=== PATIENT | female | born 1955 | race Caucasian/White ===

== ENCOUNTER → 2016-07-05 09:59 | Outpatient (CLI) | payer MEDICAID ==
[~2016-07-05 09:59] MED LIST: NORCO 10/325 TA1 TA1 PO; RYBIX ODT50 MG PO; TOPROL XL100 MG PO
[2016-07-05 10:28] LABS: BASOPHILS 0.2 % (0.0-2.0); EOSINOPHILS 1.7 % (0-7); HEMOGLOBIN 13.3 g/dL (12-16); IMMATURE GRANULOCYTES 0.3 % (0-5); LYMPHOCYTES 25.9 % (15-50); MCH 30.2 pg (26.0-34.0); MCHC 31.7 g/dL (31.0-37.0); MCV 95.5 fL (80.0-100.0); MEAN PLATELET VOLUME 9.3 fL (7.4-10.4); MONOCYTES 10.5 % (2-11); NEUTROPHILS 61.4 % (40-80); PLATELET COUNT 251 10x3/uL (130-400); RDW 12.3 % (11.5-14.5); WBC 9.5 10x3/uL (4.8-10.8)
[2016-07-05 10:54] LABS: ALBUMIN 3.9 g/dL (3.4-5.0); ALKALINE PHOSPHATASE 77 U/L (46-116); ALT (SGPT) 27 U/L (10-68); BILIRUBIN - TOTAL 0.36 mg/dL (0.2-1.3); CALC OSMOLALITY 283 mosm/kg (275-300); CALCIUM 8.7 mg/dL (8.5-10.1); CARBON DIOXIDE 29.8 mmol/L (21.0-32.0); CHLORIDE - SERUM 105 mmol/L (98-107); CHOL - HDL RATIO 5.6 ratio (2.3-4.1); CHOLESTEROL, TOTAL 240 mg/dL (0-200); CREATININE - SERUM 0.7 mg/dL (0.6-1.3); GLUCOSE 106 mg/dL (74-106); HDL CHOLESTEROL 43 mg/dL (32-96); LDL CHOLESTEROL 138 mg/dL (0-100); LDL-HDL RATIO 3.2 ratio (1.5-3.5); POTASSIUM - SERUM 4.1 mmol/L (3.5-5.1); PROTEIN - SERUM 7.5 g/dL (6.4-8.2); SODIUM 142 mmol/L (136-145); THYROID STIMULATING HORMONE 0.88 uIU/mL (0.36-3.74); TRIGLYCERIDE 298 mg/dL (30-200); UREA NITROGEN 15 mg/dL (7-18); eGFR NON AFRICAN AMERICAN 90 mL/min (90-120)
== END | disposition home or self-care (01) ==
LOC: D.LAB 09:59
PROVIDERS: Family Medicine
DX: I10 Essential (primary) hypertension (principal); E78.5 Hyperlipidemia, unspecified

== ENCOUNTER → 2016-09-08 15:25 | Outpatient (CLI) | payer MEDICAID | END | disposition home or self-care (01) | LOC: D.RAD 15:25 | DX: M54.5 Low back pain (principal); M25.569 Pain in unspecified knee ==

== ENCOUNTER → 2017-02-16 15:12 | Outpatient (CLI) | payer MEDICAID | END | disposition home or self-care (01) | LOC: D.RAD 15:12 | DX: M25.531 Pain in right wrist (principal); R22.31 Localized swelling, mass and lump, right upper limb; M25.562 Pain in left knee ==

== ENCOUNTER 2018-05-04 21:31 | Emergency (ER) | payer SELFPAY ==
[~2018-05-04] VITALS: Ht 165.1 cm; Wt 88.6 kg
[2018-05-04 21:40] VITALS: Ht 165.1 cm; Wt 88.6 kg
[2018-05-04] MEDS ORDERED: NORVASC10 MG PO (22:29)
[2018-05-04 23:07] VITALS: BP 170/91
[2018-05-05] MEDS ORDERED: CARAFATE1 G PO (17:17)
[2018-05-05] MEDS ORDERED: CATAPRES0.1 MG PO (17:17)
[2018-05-05] MEDS ORDERED: PROTONIX40 MG PO (17:17)
[2018-05-05] MEDS ORDERED: ZOFRAN ODT4 MG/UDTAB PO (17:17)
== END 2018-05-04 23:08 | disposition home or self-care (01) ==
LOC: D.ER 21:31 → EDBD 21:31 → D.ER 23:08
DX: I10 Essential (primary) hypertension (principal); M54.5 Low back pain

== ENCOUNTER 2018-05-05 10:16 | Emergency (ER) | payer SELFPAY ==
[~2018-05-05] VITALS: Ht 165.1 cm; Wt 88.6 kg
[~2018-05-05 10:16] MED LIST changes: +NORVASC10 MG PO
[2018-05-05 10:37] VITALS: Ht 165.1 cm; Wt 88.6 kg
[2018-05-05 11:03] LABS: BASOPHILS 0.2 % (0-2); EOSINOPHILS 0.8 % (0-7); HEMATOCRIT 43.1 % (36.0-48.0); HEMOGLOBIN 14.4 g/dL (12-16); IMMATURE GRANULOCYTES 0.3 % (0-5); MCH 31.1 pg (26.0-34.0); MCHC 33.4 g/dL (31.0-37.0); MCV 93.1 fL (80.0-100.0); MEAN PLATELET VOLUME 9.6 fL (7.4-10.4); MONOCYTES 10.1 % (2-11); NEUTROPHILS 64.6 % (40-80); RBC 4.63 10x6/uL (4.00-5.40); RDW 12.3 % (11.5-14.5); WBC 11.9 10x3/uL (4.8-10.8)
[2018-05-05 11:12] LABS: PLATELET COUNT 364 10x3/uL (130-400)
[2018-05-05 11:22] LABS: ALBUMIN 4.4 g/dL (3.4-5.0); ALKALINE PHOSPHATASE 158 U/L (46-116); ALT (SGPT) 754 U/L (10-68); AMYLASE - SERUM 86 U/L (25-115); BILIRUBIN - TOTAL 0.55 mg/dL (0.2-1.3); CALC OSMOLALITY 280 mosm/kg (275-300); CALCIUM 9.6 mg/dL (8.5-10.1); CHLORIDE - SERUM 100 mmol/L (98-107); CREATININE - SERUM 0.8 mg/dL (0.6-1.3); GLUCOSE 105 mg/dL (74-106); LIPASE 384 U/L (73-393); POTASSIUM - SERUM 3.6 mmol/L (3.5-5.1); PROTEIN - SERUM 8.5 g/dL (6.4-8.2); SODIUM 140 mmol/L (136-145); TROPONIN-I < 0.017 ng/mL (0.000-0.060); UREA NITROGEN 17 mg/dL (7-18); eGFR NON AFRICAN AMERICAN 76 mL/min (90-120)
[2018-05-05 13:01] LABS: APPEARANCE CLEAR (CLEAR); BILIRUBIN NEGATIVE (NEGATIVE); COLOR YELLOW (YELLOW); GLUCOSE NEGATIVE (NEGATIVE); KETONE SMALL mg/dL (NEGATIVE); NITRITE NEGATIVE (NEGATIVE); PROTEIN NEGATIVE (NEGATIVE); UROBILINOGEN NORMAL (NORMAL)
[2018-05-05] MEDS ORDERED: CARAFATE1 G PO (17:17)
[2018-05-05] MEDS ORDERED: CATAPRES0.1 MG PO (17:17)
[2018-05-05] MEDS ORDERED: ZOFRAN ODT4 MG/UDTAB PO (17:17)
[2018-05-05] MEDS ORDERED: PROTONIX40 MG PO (17:17)
[2018-05-05 18:25] VITALS: BP 170/77
== END 2018-05-05 18:26 | disposition home or self-care (01) ==
LOC: D.ER 10:16 → EDBD 10:16 → D.ER 18:26
PROVIDERS: Family Medicine
DX: R11.2 Nausea with vomiting, unspecified (principal); R79.89 Other specified abnormal findings of blood chemistry

== ENCOUNTER → 2018-05-10 14:58 | Outpatient (CLI) | payer MEDICAID ==
[2018-05-05 10:37] VITALS: BMI 32.5
[~2018-05-10 14:58] MED LIST changes: +CARAFATE1 G PO; +CATAPRES0.1 MG PO; +CATAPRES0.3 MG PO; +HYDROCODON-ACE1 EA10 PO; +LINZESS145 MCG PO; +PROTONIX40 MG PO; +ZOFRAN ODT4 MG/UDTAB PO
[2018-05-10 15:49] LABS: ALBUMIN 3.7 g/dL (3.4-5.0); BILIRUBIN - DIRECT 0.09 mg/dL (0.00-0.30); BILIRUBIN - INDIRECT 0.13 mg/dL (0.00-1.00); BILIRUBIN - TOTAL 0.22 mg/dL (0.2-1.3); PROTEIN - SERUM 7.5 g/dL (6.4-8.2)
[2018-05-30 19:35] VITALS: BMI 31.6
== END | disposition home or self-care (01) ==
LOC: D.LAB 14:58
PROVIDERS: Family Medicine
DX: K29.40 Chronic atrophic gastritis without bleeding (principal); R79.89 Other specified abnormal findings of blood chemistry

== ENCOUNTER 2018-05-30 13:30 | Inpatient (IN) | payer MEDICAID ==
[~2018-05-30] VITALS: Ht 165.1 cm; Wt 89.5 kg
--- NOTE | ~2018-05-30 | HEMODYNAMI ---
PATIENT:MARCO ANTONIO MCNAIR MEDICAL RECORD: [id number] : [birth year] [id number] ADMISSION DATE: 05/30/18 Generatedon:05/31/20188:38 Patient name: MARCO ANTONIO MCNAIR Patient #: [id number] SSN: D OB: 04/03/1954 Date of study: 05/31/2018 Page: Of Hemodynamic Procedure Report Patient Data Patient Demographics Procedure consent was obtained First Name: MARCO ANTONIO Gender: Female Last Name: XU : 04/03/1954 Patient #: [id number] Age: 64 year(s) Race: Unknown Additional ID: [id number] Contact details [address]: [address] [place] [address] State: [place] City: [place] Zip code: [address] Past Medical History Allergies: No known allergies Admission Admission Data Admission Date: 05/30/2018 Admission Time: 17:33 Room #: D.2116 Lab Results Lab Result Date: 05/31/2018 Lab Result Time: 0:00 Biochemistry Name Units Result Min Max BUN mg/dl 17 --(---*)-- 7 18 Creatinine mg/dl 1.2 --(---*)-- 0.6 1.3 CBC Name Units Result Min Max Hemoglobin g/dl 14.1 --(*---)-- 13.5 17.5 Procedure Procedure Types Cath Procedure Diagnostic Procedure LHC C w/Coronaries Procedure Description Procedure Date Procedure Date: 05/31/2018 Procedure Start Time: 8:30 Procedure End Time: 8:36 Procedure Staff Name Function Shamir Cabezas MD Performing Physician Carla Floyd RN Nurse Karel Regalado RT Scrub Abigail Remy RT Monitor Procedure Data Cath Procedure Fluoroscopy Diagnostic fluoroscopy Total fluoroscopy Time: 0.8 time: 0.8 min min Diagnostic fluoroscopy Total fluoroscopy dose: 332 dose: 332 mGy mGy Contrast Material Contrast Material Type Amount (ml) Isovue 300 44 Entry Location Entry Primary Successful Side Size Upsize Upsize Entry Closure Schuster ccessful Closure Location (Fr) 1 (Fr) 2 (Fr) Remarks Device Remarks Radial Right 6 Fr Mechanical artery Short Compression Estimated blood loss: 5 ml Diagnostic catheters Device Type Used For End Catheter Placement DIAGNOSTIC [place] 110cm 5 Procedure Fr catheter ([id number]) Procedure Complications No complications Procedure Medications Medication Administration Route Dosage 0.9% NaCl I.V. 100 ml/hr Oxygen etCO2 Nasal cannula 2 l/min Lidocaine 2% added to field 20 Heparin Flush Bag added to field 2 bags (1000units/500ml NS) Radial Cocktail added to field 1 syringe (Verapomil 2mg/Nitro 400mcg/Heparin 1500units) Versed I.V. 2 mg Fentanyl I.V. 50 mcg Versed I.V. 2 mg Fentanyl I.V. 50 mcg Hemodynamics Rest HGB: 14.1 (g/dl) Heart Rate: 75 (bpm) Snapshots Pre Cath Intra NCS Post Cath Vital Signs Time Heart Resp SPO2 etCO2 NIBP (mmHg) Rhythm Pain Sedation Rate (ipm) (%) (mmHg) Status Level (bpm) 8:11:54 77 17 100 30 147/101(124) NSR 0 (11) 10(A) , No pain 8:16:04 76 20 100 28.3 152/97(128) NSR 0 (11) 10(A) , No pain 8:20:26 68 16 97 31.4 134/71(85) NSR 0 (11) 10(A) , No pain 8:24:40 67 17 97 17.1 129/71(106) NSR 0 (11) 10(A) , No pain 8:28:52 72 15 100 9.7 127/71(87) NSR 0 (11) 10(A) , No pain 8:33:02 76 17 100 10.4 122/65(88) NSR 0 (11) 10(A) , No pain Medications Time Medication Route Dose Verified Delivered Reason Notes Ef fectiveness by by 8:10:56 0.9% NaCl I.V. 100 Shamir Carla used for ml/hr Raulito Floyd professional fee coder 8:11:03 Oxygen etCO2 2 l/min Shamir Wilsona used for Nasal Raulito Floyd procedure cannula RN 8:11:09 Lidocaine 2% added 20ml Shamir Barksdale for local to vial Raulito Cabezas MD anesthetic field 8:11:13 Heparin Flush added 2 bags Shamir Barksdale used for Bag to Raulito Cabezas MD procedure (1000units/500ml field NS) 8:11:19 Radial Cocktail added 1 Shamir Barksdale used for (Verapomil to syringe Raulito Cabezas MD procedure 2mg/Nitro field 400mcg/Heparin 1500units) 8:26:42 Versed I.V. 2 mg Shamir Sanchezyla for Raulito Floyd sedation RN 8:26:54 Fentanyl I.V. 50 mcg Shamir Sanchezyla for Raulito Floyd sedation RN 8:31:00 Fentanyl I.V. 50 mcg Shamir Sanchezyla for Raulito Floyd sedation RN 8:31:51 Versed I.V. 2 mg Shamir Sanchezyla for Raulito Floyd sedation lumber yard worker Log Time Note 7:37:12 Signed procedure consent form obtained from patient. 7:37:14 Diagnostic Cath status Elective 7:38:52 Karel Regalado RT(R) sent for patient. Start room use. 7:40:36 H&P Date Dictated: 05/30/2018 Within 30 days and on chart.. 7:40:44 Patient allergic to No known allergies 7:42:10 Lab Result : BUN 17 mg/dl 7:42:11 Lab Result : Creatinine 1.2 mg/dl 7:42:11 Lab Result : Hemoglobin 14.1 g/dl 8:01:21 Patient received from Med II to CCL 2 Alert and oriented. Tansferred to table in Supine position. 8:01:22 Warm blankets applied, and michelle hugger turned on for patient comfort. 8:01:22 Correct patient and procedure confirmed by team. 8:01:23 ECG and BP/O2 sat monitors applied to patient. 8:10:47 Vital chart was started 8:10:56 0.9% NaCl 100 ml/hr I.V. was administered by Carla Floyd RN; used for procedure; 8:11:03 Oxygen 2 l/min etCO2 Nasal cannula was administered by Carla Floyd RN; used for procedure; 8:11:09 Lidocaine 2% 20ml vial added to field was administered by Shamir Cabezas MD; for local anesthetic; 8:11:13 Heparin Flush Bag (1000units/500ml NS) 2 bags added to field was administered by Shamir Cabezas MD; used for procedure; 8:11:19 Radial Cocktail (Verapomil 2mg/Nitro 400mcg/Heparin 1500units) 1 syringe added to field was administered by Shamir Cabezas MD; used for procedure; 8:15:36 Baseline sample Acquired. 8:15:38 Rhythm: sinus rhythm 8:15:45 Full Disclosure recording started 8:15:46 Pre-procedure instructions explained to patient. 8:15:47 Pre-op teaching completed and patient verbalized understanding. 8:16:02 Family unavailable. 8:18:28 Patient diabetic? Unknown. 8:18:32 Patient not . Patient is over age 55. 8:18:35 Previous problem with sedation/anesthesia? No ? 8:18:36 Snore? No 8:18:38 Sleep apnea? No 8:18:39 Deviated septum? No 8:18:40 Opens mouth fully? Yes 8:18:42 Sticks out tongue? Yes 8:18:44 Airway obstruction? No ? 8:18:46 Dentures? No ? 8:18:49 Modified Nilay's test Ulnar < 7 seconds 8:18:51 Patient pain scale 0/10 ?. 8:18:56 IV patent on arrival in left hand with 0.9% NaCl at [facility]. 8:18:58 Lab results completed and on chart. 8:19:14 Right Radial & Right Groin area was prepped with chlora-prep and draped in sterile fashion 8:19:16 Alarms reviewed by R. N. 8:19:16 Sharps counted by scrub and verified by R.N. 8:19:18 Use device set Radial Dx or PCI 8:19:21 ACIST Syringe (41176) opened to sterile field. 8:19:25 Bag Decanter () opened to sterile field. 8:19:25 ACIST Hand Control (99617) opened to sterile field. 8:19:26 ACIST Manifold (28208) opened to sterile field. 8:19:26 Tegaderm 4 x 4 (1626W) opened to sterile field. 8:19:44 Medline Cath Pack ([id number]) opened to sterile field. 8:19:45 DIAGNOSTIC WIRE .035 260cm J wire (729849) opened to sterile field. 8:19:45 MBrace Wrist Support ([id number]) opened to sterile field. 8:19:47 SHEATH 6FR Slender (71-5110) opened to sterile field. 8:20:27 Is patient on blood thinner?Yes 8:20:30 ACC The patient was administered the following blood thiners within the last 24 hours: ACCPlavix 8:24:29 Zero performed for pressure channel P1 8::46 --------ALL STOP TIME OUT------ 8::46 Final Timeout: patient, procedure, and site verified with staff and physician. All members of the team are in agreement. 8:24:49 Right Radial & Right Groin site verified by team. 8:24:53 Fire Safety Assessment: A--An alcohol-based skin anteseptic being used preoperatively., C--Open oxygen or nitrous oxide is being used., D--An ESU, laser, or fiber-optic light is being used. 8:24:56 Physical assessment completed. ASA score P 2 - A patient with mild systemic disease as per Shamir Cabezas MD. 8:24:59 Sedation plan: IV Moderate Sedation Medication:Versed, Fentanyl 8:26:28 Zero performed for pressure channel P1 8:26:42 Versed 2 mg I.V. was administered by Carla Floyd RN; for sedation; 8:26:54 Fentanyl 50 mcg I.V. was administered by Carla Floyd RN; for sedation; 8:30:05 Procedure started. 8:30:19 Local anesthetic to right radial artery with Lidocaine 2% by Shamir Cabezas MD.INITIAL ACCESS ONLY 8:31:00 Fentanyl 50 mcg I.V. was administered by Carla Floyd RN; for sedation; 8:31:13 A 6 Fr Short sheath was inserted into the Right Radial artery 8:31:36 A DIAGNOSTIC [place] 110cm 5 Fr catheter (789492) was advanced over the wire and used for Procedure. 8:31:51 Versed 2 mg I.V. was administered by Carla Floyd RN; for sedation; 8:31:54 LV gram done using KINSEY 8:32:04 Injector settings: Ml/sec: 5, Volume: 15, 8:32:27 EF : 55 % 8:33:01 LCA angiography performed. 8:33:37 RCA angiography performed. 8:33:39 Catheter removed. 8:33:42 TR BAND Standard ([id number]) opened to sterile field. 8:34:11 Procedure ended.(Physican Out) 8:34:29 Sheath removed intact; hemostasis achieved with Mechanical Compression to the Right Radial artery. 8:34:42 Fluoroscopy time 00.80 minutes. 8:34:45 Flurop Dose total: 332 8:34:45 Fluoroscopy dose: 332 mGy 8:34:48 Contrast amount:Isovue 300 44ml. 8:34:51 TR band inflated with 10cc of air. 8:35:14 Post-procedure physical assessment completed. ASA score P 2 - A patient with mild systemic disease as per Shamir Cabezas MD. 8:35:17 Post procedure rhythm: sinus rhythm 8:35:22 Estimated blood loss: 5 ml 8:35:23 Post procedure instruction explained to patient.Patient verbalizes understanding. 8:35:23 Patient needs reinforcement of post procedure teaching. 8:35:51 Procedure and supply charges have been captured, reviewed, submitted and are correct. 8:35:53 Procedure Complication : No complications 8:35:55 Vital chart was stopped 8:35:55 See physician's report for complete and final results. 8:35:57 Report given to PCU. 8:35:59 Patient transfered to PCU with Bed. 8:36:49 Procedure ended. 8:36:49 Full Disclosure recording stopped 8:36:52 End room use (Document Last) Device Usage Item Name Manufacture Quantity Catalog Hospital Part Current Minimal Lot# / Number Charge Number Stock Stock Serial# Code ACIST Acist 1 18744 393231 891430 [id number] 20 Syringe Medical (58099) Systems Inc Bag Microtek 1 497012 07966 680708 5 Decanter Medical Inc. () ACIST Hand Acist 1 49181 381192 383903 396909 5 Control Medical (41743) Systems Inc ACIST Acist 1 98453 451725 980404 564362 5 Manifold Medical (89902) Systems Inc Tegaderm 4 3M 1 1626W 148345 268565 190847 5 x 4 (1626W) Medline Medline 1 [id number] 466116 31107 266742 5 Cath Pack ([id number]) DIAGNOSTIC St Franki 1 702347 647658 732416 757704 30 WIRE .035 260cm J wire (486997) MBrace Advanced 1 140-0250-00 072994 54269 970316 5 Wrist Vascular Support Dynamics ([id number]) SHEATH 6FR Terumo 1 [id number] 174430 404308 858626 5 Slender (80-1060) DIAGNOSTIC Terumo 1 40-5443 145589 115977 765182 5 [place] 110cm 5 Fr catheter (495472) TR BAND Terumo 1 [id number] 970622 393940 562973 40 Standard ([id number]) Signature Audit Tram Stage Time Signature Unsigned Intra-Procedure 05/31/2018 Abigail Remy 8:38:35 AM RT(R) Signatures Monitor : Abigail Remy Signature : RT Date : Time : [id number] [place] [address]
[~2018-05-30 13:30] MED LIST changes: -CATAPRES0.3 MG PO; -HYDROCODON-ACE1 EA10 PO; -LINZESS145 MCG PO
[2018-05-30 14:29] LABS: BASOPHILS 0.3 % (0-2); EOSINOPHILS 1.2 % (0-7); HEMATOCRIT 42.3 % (36.0-48.0); HEMOGLOBIN 14.1 g/dL (12-16); IMMATURE GRANULOCYTES 0.3 % (0-5); MCH 30.7 pg (26.0-34.0); MCHC 33.3 g/dL (31.0-37.0); MCV 92.2 fL (80.0-100.0); MEAN PLATELET VOLUME 9.7 fL (7.4-10.4); MONOCYTES 10.7 % (2-11); NEUTROPHILS 62.5 % (40-80); PLATELET COUNT 292 10x3/uL (130-400); RBC 4.59 10x6/uL (4.00-5.40); RDW 11.9 % (11.5-14.5); WBC 11.9 10x3/uL (4.8-10.8)
[2018-05-30 14:38] LABS: APTT 29.8 SECONDS (22.8-39.4); INR 1.06 (0.85-1.17); PROTIME 13.3 SECONDS (11.6-15.0)
[2018-05-30 14:50] LABS: ALBUMIN 3.8 g/dL (3.4-5.0); ALKALINE PHOSPHATASE 85 U/L (46-116); ALT (SGPT) 21 U/L (10-68); BILIRUBIN - TOTAL 0.31 mg/dL (0.2-1.3); CALC OSMOLALITY 275 mosm/kg (275-300); CALCIUM 9.2 mg/dL (8.5-10.1); CARBON DIOXIDE 26.1 mmol/L (21.0-32.0); CHLORIDE - SERUM 100 mmol/L (98-107); CREATININE - SERUM 1.2 mg/dL (0.6-1.3); GLUCOSE 100 mg/dL (74-106); POTASSIUM - SERUM 4.5 mmol/L (3.5-5.1); PROTEIN - SERUM 7.4 g/dL (6.4-8.2); SODIUM 137 mmol/L (136-145); UREA NITROGEN 17 mg/dL (7-18); eGFR NON AFRICAN AMERICAN 48 mL/min (90-120)
[2018-05-30 15:00] LABS: CKMB 1.5 U/L (0.0-3.6); CREATINE KINASE 81 UL (21-215)
[2018-05-30 15:02] LABS: TROPONIN-I < 0.017 ng/mL (0.000-0.060)
[2018-05-30] MEDS ORDERED: CATAPRES0.3 MG PO (19:07)
[2018-05-30] MEDS ORDERED: HYDROCODON-ACE1 EA10 PO (19:09)
[2018-05-30] MEDS ORDERED: LINZESS145 MCG PO (19:10)
[2018-05-30] MEDS ORDERED: PROTONIX40 MG PO (19:11)
--- NOTE | 2018-05-30 19:18 | NUR ---
SPOKE TO GURWINDER AT [facility] AND SPOKE TO HIM REGARDING PT'S HOME MEDS, HE REPORTED TO ME WHAT MEDS PT IS CURRENTLY ON, SEE HOME MED REC
[2018-05-30 19:35] VITALS: BP 132/66; Ht 165.1 cm; Wt 89.5 kg
--- NOTE | 2018-05-30 19:55 | NUR ---
REPORT GIVEN TO MJ MATTHEWS
[2018-05-30 22:27] VITALS: BP 99/64
[2018-05-31 02:16] VITALS: BP 122/67
[2018-05-31 05:44] VITALS: BP 112/69
--- NOTE | 2018-05-31 05:55 | NUR ---
IV TO RIGHT HAND D/C'D. RESTARTED TO LEFT HAND WITH ATTEMPTS X1 WITH 20GA CATH.
--- NOTE | 2018-05-31 07:10 | NUR ---
REPORT RECEIVED FROM MIDDLE SCHOOL VOLLEYBALL COACH. PATIENT LAYING IN BED WITH EYS CLOSED AND BREATHING EVENLY. PATIENT IS NPO AND AWAITNG HEART CATH. VS ARE GOOD. WILL CONTINUE WITH PLAN OF CARE. SR UP X 2 BED IN LOW POSTION AND CALL LIGHT IN REACH.
--- NOTE | 2018-05-31 07:35 | NUR ---
CALL RECIEVED FROM HEART CATH FOR PRE-OP. PRE-OP MEDICATIONS ADMINISTERED PER JUN. VS GOOD AND PATIENT IS STABLE. PATIENT TO INSTRUMENTATION SPECIALIST VIA INSTRUMENTATION SPECIALIST PERSONNEL.
[2018-05-31 07:47] VITALS: BP 121/76
--- NOTE | 2018-05-31 08:38 | CN ---
PATIENT NAME:MARCO ANTONIO MCNAIR MEDICAL RECORD: [id number] : [birth year] LOCATION:. D.2116 ADMIT DATE: 05/30/18 ACCOUNT: [id number] CONSULTING PHYSICIAN: DESHAUN GRIFFIN MD REFERRING PHYSICIAN: FAYE FAIR MD DATE OF CONSULTATION: 05/30/2018 CARDIOLOGY CONSULTATION DIAGNOSES: 1. Unstable angina. 2. Abnormal ECG. 3. Hypertension. HISTORY OF PRESENT ILLNESS: Mrs. Mcnair presents with 2 nights of severe chest discomfort, shortness of breath, paroxysmal nocturnal dyspnea. She does not have a cardiac history. She has family history of coronary artery disease. She has a history of hypertension. Her chest pain is very compatible with angina along with the shortness of breath and PND symptomatology. PHYSICAL EXAMINATION: GENERAL APPEARANCE: Well-nourished, well-developed, appears stated age. Level of distress, comfortable. PSYCHIATRIC: Mental status, alert, normal affect. Orientation, oriented to time, place and person. EYES: Lids and conjunctiva, noninjected. No discharge, no pallor. ENT: Lips, teeth, gums, normal dentition. Oropharynx, no cyanosis, no pallor. NECK: Carotid arteries, bilateral normal upstroke, no bruits, no thrills. JUGULAR VEINS: No jugular venous pressure or distention. CERVICAL LYMPH NODES: Nontender, nonenlarged. THYROID: Not enlarged. Nontender. No nodules. LUNGS: Respiratory effort, unlabored. CHEST: Normal curvature. No thoracic deformity. No chest wall tenderness. Percussion, resonant. Auscultation, clear. No wheezes, no rales, no rhonchi. CARDIOVASCULAR: Precordial exam, nondisplaced. No heaves or pericardial thrills. Rate and rhythm, regular. Heart sounds, normal S1, normal S2. No S3, no gallop, no rub. Systolic murmur, not heard. Diastolic murmur, not heard. EXTREMITIES: No cyanosis, no edema. Peripheral pulses, full and equal in all extremities, except as noted. No bruits appreciated. ABDOMEN: Soft, nondistended. Normal aorta. No bruit. Nontender. No masses. Liver, nontender, no hepatomegaly. Spleen, nontender, no splenomegaly. MUSCULOSKELETAL: No joint tenderness. No joint swelling. No erythema. NEUROLOGICAL: Normal gait, normal strength, normal tone. SKIN: Warm and dry. OVERALL IMPRESSION: Chest pain in an escalating unstable fashion. We will proceed with coronary angiography. Further care depends upon findings of the angiography. TRANSINT:[id number] Voice Confirmation ID: [id number] DOCUMENT ID: [id number] CONSULT REPORT [id number] MARCO ANTONIO MCNAIR JEFFREY MD at 0838 CC: [id number] DICTATION DATE: 05/30/18 170 COMPENSATOR WORKER: 05/31/18 0033 ADM IN [facility] [address] [place] [address]
--- NOTE | 2018-05-31 10:05 | NUR ---
VS GOOD. PATIENT IS STABLE. TR BAND C/D/I TO RT RADIUS. NO SIGNS OF BLEEDING, BRUISING, OR HEMATOMA. WILL CONTINUE TO MONITOR CLOSELY. WILL CONTINUE TO MONITOR VERY CLOSELY. SR UP BED IN LOW POSTION AND CALL LIGHT IN REACH.
--- NOTE | 2018-05-31 10:10 | NUR ---
PATIENT RETURNED FROM CHAIRMAN AND CHIEF EXECUTIVE OFFICER. PER REPORT NO BLOCKAGE FOUND. PATIENT IS SLEEPY BUT AOUSES TO VOICE EASILY. DENIES ANY PAIN OR NEEDS. TR BAND TO RT RADIUS CLEAN/DRY/INTACT. NO SIGNS OF BLEEDING, BRUISING OR HEMATOMA. BP136/84 T 98.0 P84 R18 O2 SAT98% ROOM AIR. WILL CONTINUE TO MONITOR CLOSELY.
[2018-05-31 11:26] VITALS: BP 137/66
--- NOTE | 2018-05-31 14:15 | NUR ---
REMAINDER OF AIR REMOVED FROM TR BAND TO RT WRIST. NO BLEEDING, BRUISING, HEMATOMA NOTED. VS GOOD . PATIENT IS STABLE. DISCHARGE INSTRUCTIONS GIVEN AND PATIENT VERBALIZED UNDERSTANDING AND SIGNED PAPERWORK. PATIENT TO FRONT DOOR A AND HOSPITAL PERSONNEL TO PRIVATE VEHICLE TO HOME FOR SLF CARE.
--- NOTE | 2018-06-01 09:38 | MORECARE ---
CASE MANAGEMENT DISCHARGE SUMMARY PATIENT: MARCO ANTONIO MCNAIR UNIT: [id number] ADM DATE: 05/30/18 AGE: 64 : [birth year] SEX: F ROOM/BED: D.6696 AUTHOR: RAQUEL DEGROOT PHYSICIAN: REFERRING PHYSICIAN: FAYE FAIR MD DATE OF SERVICE: 06/01/18 Discharge Plan Patient Name: MARCO ANTONIO MNCAIR Facility: [facility]:[place] : 04/03/1954 Planned Disposition: Home Anticipated Discharge Date: 05/31/18 Discharge Date: 05/31/2018 Expected LOS: 1 Initial Reviewer: [email or web address] Initial Review Date: 06/01/2018 Generated: 06/01/18 10:38 am Patient Name: MARCO ANTONIO MCNAIR Page [id number] at 0938 All edits/amendments must be made on the electronic document DICTATION DATE: 06/01/18936 SCHOOL COUNSELOR: DM 06/01/18936 RPT#: [id number] DC DATE:05/31/18 STATUS: DIS IN [facility] [address] [place] [address] END OF REPORT
--- NOTE | 2018-06-06 11:18 | EC ---
PATIENT:MARCO ANTONIO MCNAIR DATE OF SERVICE: 05/30/18 SEX: F MEDICAL RECORD: [id number] DATE OF : [birth year] LOCATION:D.M2 D.211 AGE OF PATIENT: 64 ADMISSION DATE: 05/30/18 REFERRING PHYSICIAN: INTERPRETING PHYSICIAN: DESHAUN CABEZAS MD ECHOCARDIOGRAM REPORT ECHO CHARGES 4 ECHO COMPLETE Date: 05/31/18 CLINICAL DIAGNOSIS: SOB ECHOCARDIOGRAPHIC MEASUREMENTS (adult normal given) AC root (d.<3.7cm) 3.0 cm LV Septum d (<1.2 cm> 0.9 cm Valve Excursion 1.7 cm LV Septum (systole) 1.1 cm Left Atria (s.<4.0cm> 3.6 cm LVPW d(<1.2cm) 1.0 cm RV (d.<2.3cm) 2.9 cm LVPW (sytole) 1.8 cm LV diastole(<5.6CM) 5.6 cm MV E-F(>70mm/sec) cm LV systole 3.6 cm LVOT Diameter 1.8 cm MV exc.(>10mm) cm Est.ejection fraction (50-75%) % DOPPLER: LVIT cm/sec A 103 cm/sec E 45 cm/sec LA cm/sec RVSP 32.3 mmHg LVOT 93 cm/sec AOP1/2T m/s Asc. Ao 121 cm/sec RVOT 60 cm/sec RA cm/sec PA 87 cm/sec AV Gradient Peak 5.9 mmHg AV Mean 3.0 mmHg AV Area 1.9 cm MV Gradient Peak 4.7 mmHg MV Mean 1.7 mmHg MV Area cm COMMENTS: Editor Producer: Long COLEMAN Ship Laborer: 1 Dr. Cabezas TAPE# PACS Pericardial Effusion N DATE OF SERVICE: 05/31/2018 FINDINGS: 1. Left ventricular chamber size is within normal limits. Left ventricular systolic function is normal. Overall ejection fraction estimated at 60%. 2. Left atrium, right atrium, and right ventricular chamber sizes are within normal limits. 3. Valvular structures have normal structure and motion. 4. Doppler interrogation only reveals trace tricuspid regurgitation, no other valvular insufficiency or stenosis. ECHOCARDIOGRAM REPORT [id number] MARCO ANTONIO MCNAIR 5. No evidence of pericardial effusion or left ventricular thrombus. TRANSINT:[id number] Voice Confirmation ID: [id number] DOCUMENT ID: [id number] DESHAUN CABEZAS MD at 1118 CC: [id number] DICTATION DATE: 05/31/18 1247 FISH HATCHERY SUPERINTENDENT: 05/31/18 2134 DIS IN 05/31/18 [facility] [address] [place] [id number]
--- NOTE | 2018-06-06 11:18 | OP ---
PATIENT NAME: MARCO ANTONIO MCNAIR MEDICAL RECORD: [id number] :[birth year] LOCATION:D.M2 D.2116 ADMISSION DATE:05/30/18 SURGEON: DESHAUN GRIFFIN MD DATE OF OPERATION: 05/31/2018 DATE OF SERVICE: 05/31/2018 PROCEDURES: 1. Left heart catheterization. 2. Selective coronary angiography. 3. Left ventriculogram. INDICATION: Chest pain compatible with angina. PROCEDURE IN DETAIL: After informed consent was obtained and after a detailed description of risks, benefits as well as alternative therapies, the patient elected to proceed with angiogram and heart catheterization. The right radial area was prepped and draped in normal sterile fashion. Right radial artery was cannulated via modified Seldinger technique with placement of 5-Croatian sheath. All catheters exchanged through this sheath. FINDINGS: Left ventriculogram was performed in the standard 30-degree KINSEY view reveals good cardiac wall motion throughout all segments. Overall ejection fraction estimated at 60%. SELECTIVE CORONARY ANGIOGRAPHY: Left main, left anterior descending, left circumflex, right coronary are all smooth-walled vessels with no angiographic evidence of coronary artery disease. OVERALL IMPRESSION: 1. No angiographic evidence of coronary artery disease. 2. Normal left heart pressures. 3. Normal left ventricular systolic function. Chest pain is noncardiac in etiology. No further cardiac workup needs to be ascertained. TRANSINT:[id number] Voice Confirmation ID: [id number] DOCUMENT ID: [id number] DESHAUN GRIFFIN MD at 1118 CC: [id number] DICTATION DATE: 05/31/18 0837 CANE LOADER: 05/31/18 0914 DIS IN 05/31/18 [address] [id number] [place] [id number]
== END 2018-05-31 14:45 | disposition home or self-care (01) | DRG 287 ==
LOC: D.ER 13:30 → D.EDHOLD 17:33 → D.M2 17:33
PROVIDERS: Emergency Medicine; Internal Medicine Interventional Cardiology; ADMIT Family Medicine
PROC: B2151ZZ Fluoroscopy of Left Heart using Low Osmolar Contrast (ICD-10-PCS; 2018-05-31)
PROC: 4A023N7 Measurement of Cardiac Sampling and Pressure, Left Heart, Percutaneous Approach (ICD-10-PCS; 2018-05-31)
PROC: B2111ZZ Fluoroscopy of Multiple Coronary Arteries using Low Osmolar Contrast (ICD-10-PCS; principal; 2018-05-31 07:38)
DX: R07.89 Other chest pain (principal); R94.31 Abnormal electrocardiogram [ECG] [EKG]; I10 Essential (primary) hypertension; K21.9 Gastro-esophageal reflux disease without esophagitis; K59.09 Other constipation; M54.5 Low back pain; G89.29 Other chronic pain

== ENCOUNTER 2018-08-25 08:51 | Emergency (ER) | payer MEDICARE ==
[~2018-08-25] VITALS: Ht 165.1 cm; Wt 89.1 kg
[~2018-08-25 08:51] MED LIST changes: +CATAPRES0.3 MG PO; +HYDROCODON-ACE1 EA10 PO; +LINZESS145 MCG PO
[2018-08-25 08:56] VITALS: Ht 165.1 cm; Wt 89.1 kg
[2018-08-25 09:52] LABS: BASOPHILS 0.1 % (0-2); EOSINOPHILS 0.6 % (0-7); HEMATOCRIT 39.2 % (36.0-48.0); IMMATURE GRANULOCYTES 0.3 % (0-5); LYMPHOCYTES 17.4 % (15-50); MCH 30.5 pg (26.0-34.0); MCHC 33.2 g/dL (31.0-37.0); MEAN PLATELET VOLUME 9.5 fL (7.4-10.4); MONOCYTES 7.6 % (2-11); RBC 4.26 10x6/uL (4.00-5.40); RDW 12.7 % (11.5-14.5); WBC 12.8 10x3/uL (4.8-10.8)
[2018-08-25 10:07] LABS: ALKALINE PHOSPHATASE 79 U/L (46-116); ALT (SGPT) 23 U/L (10-68); APTT 31.2 SECONDS (22.8-39.4); BILIRUBIN - TOTAL 0.44 mg/dL (0.2-1.3); CALC OSMOLALITY 283 mosm/kg (275-300); CALCIUM 9.6 mg/dL (8.5-10.1); CARBON DIOXIDE 28.4 mmol/L (21.0-32.0); CHLORIDE - SERUM 103 mmol/L (98-107); CREATININE - SERUM 0.6 mg/dL (0.6-1.3); GLUCOSE 114 mg/dL (74-106); INR 1.04 (0.85-1.17); POTASSIUM - SERUM 4.1 mmol/L (3.5-5.1); PROTEIN - SERUM 7.4 g/dL (6.4-8.2); PROTIME 13.1 SECONDS (11.6-15.0); SODIUM 141 mmol/L (136-145); UREA NITROGEN 18 mg/dL (7-18); eGFR NON AFRICAN AMERICAN > 90 mL/min (90-120)
[2018-08-25 10:22] LABS: PLATELET COUNT 361 10x3/uL (130-400)
[2018-08-25 10:26] LABS: CKMB 0.9 U/L (0.0-3.6); CREATINE KINASE 125 UL (21-215); TROPONIN-I < 0.017 ng/mL (0.000-0.060)
[2018-08-25] MEDS ORDERED: LOTREL 5/10 MG1 CAP PO (10:58)
[2018-08-25 11:13] VITALS: BP 146/83
== END 2018-08-25 11:14 | disposition home or self-care (01) ==
LOC: D.ER 08:51
PROVIDERS: Emergency Medicine
DX: I10 Essential (primary) hypertension (principal); R00.2 Palpitations

== ENCOUNTER 2018-09-25 08:40 | Observation (INO) | payer MEDICARE ==
[~2018-09-25] VITALS: Ht 165.1 cm; Wt 90.9 kg
[~2018-09-25 08:40] MED LIST changes: +LOTREL 5/10 MG1 CAP PO; +OMNICEF300 MG PO
[2018-09-25] MEDS ORDERED: ELAVIL25 MG PO (09:16)
[2018-09-25] MEDS ORDERED: NEURONTIN 300300 MG PO (09:16)
[2018-09-25 09:18] VITALS: BP 133/91
[2018-09-25 09:51] LABS: BASOPHILS 0.2 % (0-2); EOSINOPHILS 0.1 % (0-7); HEMATOCRIT 40.3 % (36.0-48.0); HEMOGLOBIN 13.7 g/dL (12-16); IMMATURE GRANULOCYTES 0.3 % (0-5); MCH 30.8 pg (26.0-34.0); MCV 90.6 fL (80.0-100.0); MEAN PLATELET VOLUME 9.1 fL (7.4-10.4); NEUTROPHILS 84.4 % (40-80); PLATELET COUNT 348 10x3/uL (130-400); RBC 4.45 10x6/uL (4.00-5.40); RDW 12.5 % (11.5-14.5); WBC 11.6 10x3/uL (4.8-10.8)
[2018-09-25 10:01] LABS: ALBUMIN 4.2 g/dL (3.4-5.0); ALKALINE PHOSPHATASE 114 U/L (46-116); ALT (SGPT) 455 U/L (10-68); CALC OSMOLALITY 287 mosm/kg (275-300); CALCIUM 9.6 mg/dL (8.5-10.1); CARBON DIOXIDE 22.9 mmol/L (21.0-32.0); CHLORIDE - SERUM 105 mmol/L (98-107); CREATININE - SERUM 0.8 mg/dL (0.6-1.3); GLUCOSE 127 mg/dL (74-106); POTASSIUM - SERUM 3.5 mmol/L (3.5-5.1); PROTEIN - SERUM 8.2 g/dL (6.4-8.2); SODIUM 143 mmol/L (136-145); UREA NITROGEN 16 mg/dL (7-18); eGFR NON AFRICAN AMERICAN 76 mL/min (90-120)
[2018-09-25 10:05] LABS: APTT 28.6 SECONDS (22.8-39.4); INR 1.05 (0.85-1.17); PROTIME 13.2 SECONDS (11.6-15.0)
[2018-09-25 10:11] LABS: CKMB 0.6 U/L (0.0-3.6); CREATINE KINASE 76 UL (21-215); MAGNESIUM - SERUM 1.9 mg/dL (1.8-2.4); TROPONIN-I < 0.017 ng/mL (0.000-0.060)
[2018-09-25 11:33] VITALS: BP 157/86
[2018-09-25] MEDS ORDERED: CADUET 5 MG-201 EACH PO (12:04)
--- NOTE | 2018-09-25 12:11 | NUR ---
RECIVED FROM ER PER WC TO ROOM 2121. ADMIT ASSESSMENT PER RN
[2018-09-25 12:12] VITALS: BP 152/94
[2018-09-25 12:53] VITALS: BP 152/94; Ht 165.1 cm; Wt 90.9 kg
[2018-09-25 16:24] VITALS: BP 134/86
--- NOTE | 2018-09-25 16:41 | NUR ---
WITHOUT CHANGES OR DISTRESS NOTED AT THIS TIME. DENIES NEEDS
[2018-09-25 20:00] VITALS: BP 155/62
--- NOTE | 2018-09-25 20:38 | NUR ---
HS MEDS GIVEN WITH FRESH ICE WTER. NORCO 1 TAB GIVEN FOR C/O EVANS. BED LOW, CL IN REACH.
[2018-09-26 04:00] VITALS: BP 148/88
--- NOTE | 2018-09-26 04:18 | NUR ---
I have reviewed this patient and I concur with the Shift Assessment completed by the Licensed Practical Nurse today this shift.
[2018-09-26 06:09] LABS: BASOPHILS 0.2 % (0-2); EOSINOPHILS 2.2 % (0-7); HEMOGLOBIN 13.2 g/dL (12-16); IMMATURE GRANULOCYTES 0.5 % (0-5); LYMPHOCYTES 22.9 % (15-50); MCH 30.3 pg (26.0-34.0); MCV 91.7 fL (80.0-100.0); MEAN PLATELET VOLUME 9.1 fL (7.4-10.4); MONOCYTES 11.1 % (2-11); NEUTROPHILS 63.1 % (40-80); PLATELET COUNT 372 10x3/uL (130-400); RBC 4.36 10x6/uL (4.00-5.40)
[2018-09-26 06:47] LABS: CALC OSMOLALITY 290 mosm/kg (275-300); CALCIUM 8.9 mg/dL (8.5-10.1); CARBON DIOXIDE 25.5 mmol/L (21.0-32.0); CHLORIDE - SERUM 109 mmol/L (98-107); CHOL - HDL RATIO 3.5 ratio (2.3-4.1); CHOLESTEROL, TOTAL 206 mg/dL (0-200); CREATININE - SERUM 0.6 mg/dL (0.6-1.3); GLUCOSE 110 mg/dL (74-106); HDL CHOLESTEROL 59 mg/dL (32-96); LDL CHOLESTEROL 120 mg/dL (0-100); POTASSIUM - SERUM 3.4 mmol/L (3.5-5.1); SODIUM 145 mmol/L (136-145); THYROID STIMULATING HORMONE 0.22 uIU/mL (0.36-3.74); TRIGLYCERIDE 136 mg/dL (30-200); UREA NITROGEN 16 mg/dL (7-18); eGFR NON AFRICAN AMERICAN > 90 mL/min (90-120)
--- NOTE | 2018-09-26 07:15 | NUR ---
ASSESSMENT DONE. DENIES NEEDS
[2018-09-26 08:19] VITALS: BP 127/78
[2018-09-26] MEDS ORDERED: ASPIRIN325 MG PO (12:24)
[2018-09-26] MEDS ORDERED: FLORAJEN3 CAPS460 MG PO (12:25)
[2018-09-26] MEDS ORDERED: LINZESS145 MCG PO (12:25)
[2018-09-26] MEDS ORDERED: METOPROLOL TART50 MG PO (12:26)
[2018-09-26] MEDS ORDERED: PRAVACHOL20 MG PO (12:26)
[2018-09-26 12:28] VITALS: BP 145/77
--- NOTE | 2018-09-26 13:35 | NUR ---
DC GIVEN PT
--- NOTE | 2018-09-26 13:45 | NUR ---
I have reviewed this patient and I concur with the Shift Assessment completed by the Licensed Practical Nurse today this shift.
--- NOTE | 2018-09-26 13:54 | NUR ---
DC HOME PER PERSONAL CAR
--- NOTE | 2018-09-27 08:22 | MORECARE ---
CASE MANAGEMENT DISCHARGE SUMMARY PATIENT: MARCO ANTONIO MCNAIR UNIT: [id number] ADM DATE: 09/25/18 AGE: 64 : [birth year] SEX: F ROOM/BED: D.[facility]7 AUTHOR: RAQUEL DEGROOT PHYSICIAN: REFERRING PHYSICIAN: FAYE FAIR MD DATE OF SERVICE: 09/27/18 Discharge Plan Patient Name: MARCO ANTONIO MCNAIR Facility: [facility]:[place] : 04/03/1954 Planned Disposition: Home Anticipated Discharge Date: 09/26/18 Discharge Date: 09/26/2018 Expected LOS: 1 Initial Reviewer: [email or web address] Initial Review Date: 09/27/2018 Generated: 09/27/18 9:22 am Patient Name: MARCO ANTONIO MCNAIR Page [id number] at 0822 All edits/amendments must be made on the electronic document DICTATION DATE: 09/27/18821 DIAMOND DIE POLISHER: DM 09/27/18821 RPT#: [id number] DC DATE:09/26/18 STATUS: DIS IN [facility] [address] [place] [address] END OF REPORT
--- NOTE | 2018-09-27 11:19 | CN ---
PATIENT NAME:MARCO ANTONIO MCNAIR MEDICAL RECORD: [id number] : [birth year] LOCATION:D. D.2121 ADMIT DATE: 09/25/18 ACCOUNT: [id number] CONSULTING PHYSICIAN: DESHAUN GRIFFIN MD REFERRING PHYSICIAN: FAYE FAIR MD DATE OF CONSULTATION: 09/25/2018 CARDIOLOGY CONSULT DIAGNOSES: 1. Chest pain. 2. Palpitations. 3. Coronary artery disease. 4. Previous PTCA and stent. 5. Hypertension. 6. Tachycardia. 7. Shortness of breath and dyspnea on exertion. HISTORY: Mrs. Mcnair presents with one day of chest pain. She as well has palpitations, tachycardia, and uncontrolled blood pressure. She underwent cardiac catheterization in May, revealing no significant disease. She does have a history of cardiac stenting in the distant past. She is not having chest pain at this time. Her EKG has no ST-T abnormalities. Troponin is normal. She is quite tachycardic with heart rates in the 115-130 range. Her systolic blood pressure is in 130-150 range. She is only on amlodipine for blood pressure. PHYSICAL EXAMINATION: GENERAL APPEARANCE: Well-nourished, well-developed, appears stated age. Level of distress, comfortable. PSYCHIATRIC: Mental status, alert, normal affect. Orientation, oriented to time, place and person. EYES: Lids and conjunctiva, noninjected. No discharge, no pallor. ENT: Lips, teeth, gums, normal dentition. Oropharynx, no cyanosis, no pallor. NECK: Carotid arteries, bilateral normal upstroke, no bruits, no thrills. JUGULAR VEINS: No jugular venous pressure or distention. CERVICAL LYMPH NODES: Nontender, nonenlarged. THYROID: Not enlarged. Nontender. No nodules. LUNGS: Respiratory effort, unlabored. CHEST: Normal curvature. No thoracic deformity. No chest wall tenderness. Percussion, resonant. Auscultation, clear. No wheezes, no rales, no rhonchi. CARDIOVASCULAR: Precordial exam, nondisplaced. No heaves or pericardial thrills. Rate and rhythm, regular. Heart sounds, normal S1, normal S2. No S3, no gallop, no rub. Systolic murmur, not heard. Diastolic murmur, not heard. EXTREMITIES: No cyanosis, no edema. Peripheral pulses, full and equal in all extremities, except as noted. No bruits appreciated. ABDOMEN: Soft, nondistended. Normal aorta. No bruit. Nontender. No masses. Liver, nontender, no hepatomegaly. Spleen, nontender, no splenomegaly. MUSCULOSKELETAL: No joint tenderness. No joint swelling. No erythema. NEUROLOGICAL: Normal gait, normal strength, normal tone. SKIN: Warm and dry. OVERALL IMPRESSION: I think she is feeling the tachycardia and palpitations. She has no new significant coronary artery disease as per cardiac catheterization approximately 3 months ago. We do not need to repeat cardiac catheterization at this time, only medical management. We will put her on CONSULT REPORT [id number] RICHARDKANDICEGARYMARCO ANTONIO Lopressor 100 mg b.i.d. This should treat her heart rate and blood pressure and hopefully resolve her symptomatology. TRANSINT:[id number] Voice Confirmation ID: [id number] DOCUMENT ID: [id number] DESHAUN GRIFFIN MD at 1119 CC: [id number] DICTATION DATE: 09/25/18 1253 SKI EDGE PAINTER: 09/25/18 1413 DIS IN 09/26/18 [place] [id number] [place] [id number]
== END 2018-09-26 13:55 | disposition home or self-care (01) ==
LOC: D.ER 08:40 → D.M2 11:27 → OBSVTIME 11:39 → D.M2 09-26 13:55
PROVIDERS: Family Medicine; ADMIT Family Medicine; ATTEND Family Medicine
DX: R00.2 Palpitations (principal); I25.10 Atherosclerotic heart disease of native coronary artery without angina pectoris; I10 Essential (primary) hypertension; K21.9 Gastro-esophageal reflux disease without esophagitis; K59.00 Constipation, unspecified; G47.00 Insomnia, unspecified; F41.9 Anxiety disorder, unspecified; E78.5 Hyperlipidemia, unspecified; H66.92 Otitis media, unspecified, left ear